=== PATIENT | male | born 1950 | race Caucasian/White ===

== ENCOUNTER 2017-01-04 14:03 | Emergency (ER) | payer OTHER ==
[2017-01-04 14:08] VITALS: TEMP 97.7; BMI 25.3
[2017-01-04] MEDS ORDERED: morphine CARPU-JECT 4 MG/1 ML DISP.SYRIN IVPUSH ONE (14:36)
[2017-01-04] MEDS ORDERED: SODIUM CHLORIDE 1,000 ML IV SCH (14:45)
[2017-01-04 15:10] LABS: URINE APPEARANCE SLCLOUDY; URINE BILIRUBIN NEGATIVE (NEGATIVE); URINE COLOR YELLOW; URINE GLUCOSE (UA) NEGATIVE (NEGATIVE); URINE KETONE NEGATIVE (NEGATIVE); URINE LEUK ESTERASE NEGATIVE (NEGATIVE); URINE NITRITE NEGATIVE (NEGATIVE); URINE PROTEIN NEGATIVE (NEGATIVE); URINE UROBILINOGEN NEGATIVE E.U./dl (0.2-1.0)
[2017-01-04 15:11] LABS: BASOPHIL 0.2 % (0-2.0); EOSINOPHIL 0.4 % (0-4.5); MCH 29.1 pg (25.7-33.7); MCHC 33.3 g/dl (32.0-35.9); MEAN CELL VOLUME 87.3 fl (80-96); MEAN PLT VOLUME 9.2 fl (7.5-11.1); PLATELET COUNT 184 K/MM3 (134-434); WHITE BLOOD COUNT 14.1 K/mm3 (4.0-10.0)
[2017-01-04 15:29] LABS: URINE BLOOD 3+ (NEGATIVE)
[2017-01-04 15:31] LABS: ALBUMIN 4.3 g/dl (3.4-5.0); ANION GAP 7 (8-16); CALCIUM 8.6 mg/dL (8.5-10.1); CO2 28 mmol/L (21-32); GLUCOSE,RANDOM 123 mg/dL (74-106); SGOT/AST 22 U/L (15-37); SGPT/ALT 44 U/L (12-78); TOT PROT 7.6 g/dl (6.4-8.2)
--- NOTE | 2017-01-04 15:32 | PDOC ---
History of Present Illness - General History Source: Patient Exam Limitations: No Limitations - History of Present Illness Initial Comments: 01/04/17 15:39 The patient is a 66 year old male with a significant past medical history of kidney stones, BPH, and glaucoma, who presents to the ER with right flank pain for one day. Patient states he had lithotripsy (no stent) done for the right kidney stone three days ago. Patient was given a filter and states that he has not seen any stones in the urine. He reports noticing urine in the blood and associated right flank and right abdominal pain that he describes as unbearable and a heat sensation. Patient admits that this is his first lithotripsy. He said he went to his doctors office for similar symptoms and was given a shot with slight relief of symptoms. Denies nausea, vomiting Denies fever, chills, cough Denies weakness PCP: Dr. Donnell Myers <Yasmin Muniz - Last Filed: 01/04/17 16:55> - General History Source: Patient Exam Limitations: No Limitations <Brianne Abel - Last Filed: 01/04/17 17:06> - General Chief Complaint: Pain, Acute Stated Complaint: SENT BY PCP/flank pain Time Seen by Provider: 01/04/17 14:36 Past History <Yasmin Muniz - Last Filed: 01/04/17 16:55> - Past Medical History Disorders: Yes (Kidney stones (blasting 01/13)) Other medical history: legally blind - Psycho/Social/Smoking Cessation Hx Suicidal Ideation: No Smoking History: Never smoked Information on smoking cessation initiated: No Hx Alcohol Use: No Drug/Substance Use Hx: No Substance Use Type: None <Brianne Abel - Last Filed: 01/04/17 17:06> - Past Medical History Allergies/Adverse Reactions: Allergies Allergy/AdvReac Type Severity Reaction Status Date / Time No Known Allergies Allergy Verified 01/04/17 14:08 Home Medications: Ambulatory Orders Amlodipine Besylate 5 mg PO DAILY 01/04/17 Review of Systems - Review of Systems Able to Perform ROS?: Yes Comments:: 01/04/17 15:39 GENERAL/CONSTITUTIONAL: No: fever, chills, weakness, loss of appetite. HEAD, EYES, EARS, NOSE AND THROAT: No: change in vision, ear pain, discharge, sore throat, throat swelling. CARDIOVASCULAR: No: chest pain, lightheadedness, palpitations, syncope RESPIRATORY: No: cough, shortness of breath, wheezing, hemoptysis, stridor. GASTROINTESTINAL: (+) right abdominal pain. No: nausea, vomiting, abdominal cramping, diarrhea, rectal bleeding, constipation. GENITOURINARY: (+) hematuria, flank pain. No: dysuria, frequency, urgency. MUSCULOSKELETAL: No: back pain, neck pain, joint pain, muscle swelling or pain SKIN AND BREASTS: No: lesions, pallor, rash or easy bruising. NEUROLOGIC: No: headache, vertigo, paresthesias, weakness ENDOCRINE: No: unexplained weight gain or loss HEMATOLOGIC/LYMPHATIC: No: anemia, easy bleeding, swelling nodes <Uts,Yasmin - Last Filed: 01/04/17 16:55> *Physical Exam - Vital Signs Last Vital Signs Temp Pulse Resp BP Pulse Ox 97.7 F 55 L 18 151/75 99 01/04/17 14:06 01/04/17 14:06 01/04/17 14:06 01/04/17 14:06 01/04/17 14:06 - Physical Exam Comments: 01/04/17 15:40 GENERAL: The patient is in no acute distress. HEAD: Normal with no signs of trauma. EYES: PERRLA, EOMI, sclera anicteric, conjunctiva clear. ENT: Ears normal, nares patent, oropharynx clear without exudates. Moist mucous membranes. NECK: Normal range of motion, supple without lymphadenopathy, JVD, or masses. LUNGS: Breath sounds equal, clear to auscultation bilaterally. No wheezes, and no crackles. HEART:Regular rate and rhythm, normal S1 and S2 without murmur, rub or gallop. ABDOMEN: Soft, nontender, normoactive bowel sounds. No guarding, no rebound. EXTREMITIES: Normal range of motion, no edema. No clubbing or cyanosis. No erythema, or tenderness. NEUROLOGICAL: Cranial nerves II through XII grossly intact. Normal speech. No focal neurological deficits. MUSCULOSKELETAL: Right CVA tenderness. Back non-tender to palpation. SKIN: Warm, Dry, normal turgor, no rashes or lesions noted. <Uts,Yasmin - Last Filed: 01/04/17 16:55> - Vital Signs Last Vital Signs Temp Pulse Resp BP Pulse Ox 97.7 F 55 L 18 151/75 99 01/04/17 14:06 01/04/17 14:06 01/04/17 14:06 01/04/17 14:06 01/04/17 14:06 <Brianne Abel - Last Filed: 01/04/17 17:06> ED Treatment Course - LABORATORY CBC & Chemistry Diagram: 01/04/17 15:00 01/04/17 15:00 - ADDITIONAL ORDERS Additional order review: Laboratory Results 01/04/17 01/04/17 15:00 15:00 Sodium 139 Potassium 4.0 Chloride 104 Carbon Dioxide 28 Anion Gap 7 L BUN 14 Creatinine 1.2 Creat Clearance w eGFR > 60 Random Glucose 123 H Calcium 8.6 Total Bilirubin 0.5 AST 22 ALT 44 Alkaline Phosphatase 57 Total Protein 7.6 Albumin 4.3 Urine Color Yellow Urine Appearance Slcloudy Urine pH 5.0 Urine Protein Negative Urine Glucose (UA) Negative Urine Ketones Negative Urine Blood 3+ H Urine Nitrite Negative Urine Bilirubin Negative Urine Urobilinogen Negative Ur Leukocyte Esterase Negative 01/04/17 15:00 RBC 5.10 MCV 87.3 MCHC 33.3 RDW 13.0 MPV 9.2 Neutrophils % 83.0 H Lymphocytes % 7.4 L Monocytes % 9.0 Eosinophils % 0.4 Basophils % 0.2 - RADIOLOGY Radiograph Interpretation: 01/04/17 16:[address] Trevor Chow <Yasmin Muniz - Last Filed: 01/04/17 16:55> - LABORATORY CBC & Chemistry Diagram: 01/04/17 15:00 01/04/17 15:00 - ADDITIONAL ORDERS Additional order review: Laboratory Results 01/04/17 15:00 Urine Color Yellow Urine Appearance Slcloudy Urine pH 5.0 Urine Protein Negative Urine Glucose (UA) Negative Urine Ketones Negative Urine Blood 3+ H Urine Nitrite Negative Urine Bilirubin Negative Urine Urobilinogen Negative Ur Leukocyte Esterase Negative 01/04/17 15:00 RBC 5.10 MCV 87.3 MCHC 33.3 RDW 13.0 MPV 9.2 Neutrophils % 83.0 H Lymphocytes % 7.4 L Monocytes % 9.0 Eosinophils % 0.4 Basophils % 0.2 - RADIOLOGY Radiology Studies Ordered: Category Date Time Status SPIRAL- RENAL-STONE CT [CT] Stat CT Scan 01/04/17 14:36 Ordered <Brianne Abel - Last Filed: 01/04/17 17:06> Medical Decision Making - Medical Decision Making 01/04/17 15:31 A portion of this note was documented by scribe services under my direction. I have reviewed the details of the note, within reason, and agree with the documentation with the following case summary and management plan written by me. Nursing documentation reviewed and incorporated into medical decision making 01/04/17 15:43 This is a 66 yo M with a history of HTN, legal blindness right flank pain Two days s/p lithotrypsy (not stented) Presenting to the ER from Urologist's office due to severe pain Pt given pain medications Preesnts to the ER comfortable Laboratory Tests 01/04/17 01/04/17 01/04/17 15:00 15:00 15:00 WBC 14.1 H Hgb 14.8 Hct 44.5 Plt Count 184 Neutrophils % 83.0 H Lymphocytes % 7.4 L BUN 14 Creatinine 1.2 Random Glucose 123 H Urine Blood 3+ H Urine Nitrite Negative Ur Leukocyte Esterase Negative 01/04/17 17:00 CT demonstrates mild hydronephrosis, hydroureter, perinephric stranding No stones in the ureter at this time No bladder stones seen Pt feels well, did not require pain medications in the ER Will: discharge to home Case reviewed with Dr. Trevor Chow Pt can be discharged to home He will need to followed up on Sunday Clinical impression: recently passed kidney stone, <Brianne Abel - Last Filed: 01/04/17 17:06> *DC/Admit/Observation/Transfer - Attestations Scribe Attestion: 01/04/17 15:41 Documentation prepared by Yasmin Muniz, acting as medical billing service for Brianne Abel MD. <Yasmin Muniz - Last Filed: 01/04/17 16:55> <Brianne Abel - Last Filed: 01/04/17 17:06> Diagnosis at time of Disposition: Calculus of right kidney - Referrals Referrals: Donnell Myers MD [Primary Care Provider] -
[2017-01-04 15:35] LABS: ALK PHOS 57 U/L (45-117); BILIRUBIN,TOTAL 0.5 mg/dL (0.2-1.0); COCKROFT - GAULT 61.81; CREATININE 1.2 mg/dL (0.7-1.3)
[2017-01-04 15:55] LABS: URINE HYALINE CAST 1 /lpf; URINE MUCUS RARE; URINE RBC 120 /hpf (0-3); URINE WBC 3 /hpf (3-5)
[2017-01-04 17:40] VITALS: BP 161/84; PULSE 63
== END 2017-01-04 17:41 | disposition home or self-care (01) ==
LOC: JER 14:03
DX: H54.0 Blindness, both eyes (principal); N40.0 Benign prostatic hyperplasia without lower urinary tract symptoms; H40.9 Unspecified glaucoma
CPT/HCPCS: 36415; 74176; 80053; 81003; 81015; 85025; 87086; 99282-25

== ENCOUNTER 2018-03-18 12:12 | Emergency (ER) | payer OTHER ==
[2018-03-18 12:23] VITALS: TEMP 98.4; BMI 24.2
--- NOTE | 2018-03-18 12:29 | PDOC ---
History of Present Illness - General Chief Complaint: Blood Pressure Problem Stated Complaint: NAUSEA Time Seen by Provider: 03/18/18 12:28 - History of Present Illness Initial Comments: The patient is a 67M with a PMH of HTN, glaucoma, and BPH who presents with 5 days of worsening lightheadedness and weakness. The patient reports that he feels dizzy when standing but denies LOC. He states that he has never felt this way before. He denies recent changes in medications. Takes Amlodipine 5mg daily for HTN but has not taken it today because he was concerned it could exacerbate his symptoms. He denies fevers/chills, chest pain, SOB, abdominal pain, or changes in sensation. His PCP is Dr. Donnell Myers. He does not have a Oil Changer 03/18/18 12:55 Past History - Past Medical History Allergies/Adverse Reactions: Allergies Allergy/AdvReac Type Severity Reaction Status Date / Time No Known Allergies Allergy Verified 01/04/17 14:08 Home Medications: Ambulatory Orders Amlodipine Besylate 5 mg PO DAILY 01/04/17 COPD: No Disorders: Yes (Kidney stones (blasting 01/13)) HTN: Yes Other medical history: glaucoma - Suicide/Smoking/Psychosocial Hx Smoking History: Never smoked Hx Alcohol Use: No Drug/Substance Use Hx: No Substance Use Type: None Review of Systems - Review of Systems Able to Perform ROS?: Yes Comments:: GENERAL/CONSTITUTIONAL: No fever or chills; +malaise/weakness HEAD, EYES, EARS, NOSE AND THROAT: No change in vision. No ear pain or discharge. No sore throat CARDIOVASCULAR: No chest pain or shortness of breath RESPIRATORY: No cough, wheezing, or hemoptysis GASTROINTESTINAL: No nausea, vomiting, diarrhea or constipation GENITOURINARY: No dysuria, frequency, or change in urination MUSCULOSKELETAL: No joint or muscle swelling or pain. No neck or back pain SKIN: No rash NEUROLOGIC: +Dizziness w/ standing; No headache, loss of consciousness, or change in strength/sensation ENDOCRINE: No increased thirst. No abnormal weight change HEMATOLOGIC/LYMPHATIC: No anemia, easy bleeding, or history of blood clots ALLERGIC/IMMUNOLOGIC: No hives or skin allergy 03/18/18 13:00 *Physical Exam - Vital Signs Last Vital Signs Temp Pulse Resp BP Pulse Ox 98.4 F 51 L 18 187/79 99 03/18/18 12:19 03/18/18 12:19 03/18/18 12:19 03/18/18 12:19 03/18/18 12:19 - Physical Exam Comments: GENERAL: Awake, alert, and fully oriented, in no acute distress HEAD: No signs of trauma, normocephalic, atraumatic EYES: b/l glaucom L worse than R; EOMI ENT: Hearing grossly normal, nares patent, oropharynx clear without exudates. Moist mucosa NECK: Normal ROM, supple, no lymphadenopathy LUNGS: No distress, speaks full sentences, clear to auscultation bilaterally HEART:Regular rate and rhythm, normal S1 and S2, no murmurs appreciated, peripheral pulses normal and equal bilaterally ABDOMEN: Soft, nontender, normoactive bowel sounds. No guarding, no rebound EXTREMITIES : Normal inspection, Normal range of motion, no edema. No clubbing or cyanosis NEUROLOGICAL: Cranial nerves II through XII grossly intact. Normal speech, no focal sensorimotor deficits SKIN: Warm, Dry, normal turgor, no rashes or lesions noted 03/18/18 13:01 ED Treatment Course - LABORATORY CBC & Chemistry Diagram: 03/18/18 13:09 03/18/18 13:09 Medical Decision Making - Medical Decision Making The patient is a 67M with a history of HTN, BPH, and glaucoma who presents with 5 days of worsening dizziness w/ standing and malaise and hypertensive urgency ED Course CMP, CBC, UA CXR, ECG Hydralazine 10mg IV once 03/18/18 13:03 Patient wishes to leave against medical advice to go to [facility] for evaluation. Patient states that a family member is coming to pick him up. Note: The patient insists on leaving the emergency dept and is signing out against medical advice. The patient understands the risks and complications that may result from the refusal of medical care and admission which includes and permanent disability. The patient has the mental capacity of understanding the risks of refusing care and is capable of making an informed decision. The patient was instructed to return to the emergency department should condition change, change mind regarding medical care, or if condition worsen. The patient signed the Against Medical Advice form. *DC/Admit/Observation/Transfer Diagnosis at time of Disposition: Dizziness - Discharge Dispostion Disposition: AGAINST MEDICAL ADVICE Condition at time of disposition: Guarded - Referrals Referrals: Donnell Myers MD [Primary Care Provider] - - Patient Instructions - Post Discharge Activity
--- NOTE | 2018-03-18 12:33 | PDOC ---
Attending Attestation - HPI HPI: 03/18/18 12:52 The patient is a 67 year old male, with a significant past medical history of htn, bph, glaucoma, who presents to the emergency department from his PCP office with a 5 day complaint of weakness and dizziness with changing positions. He reports a couple episodes of nonbloody emesis about a week ago, but none since. The patient denies chest pain, shortness of breath, headache. The patient denies fever, chills, nausea, vomit, diarrhea and constipation. The patient denies dysuria, frequency, urgency and hematuria. Allergies: NKDA - Physicial Exam PE: 03/18/18 12:53 GENERAL: Awake, alert, and fully oriented, in no acute distress HEAD: No signs of trauma EYES: (+) left eye cataract. PERRLA, EOMI, sclera anicteric, conjunctiva clear ENT: Auricles normal inspection, hearing grossly normal, nares patent, oropharynx clear without exudates. Moist mucosa NECK: Normal ROM, supple, no lymphadenopathy, JVD, or masses LUNGS: Breath sounds equal, clear to auscultation bilaterally. No wheezes, and no crackles HEART: (+) slightly bradycardic 40s-50s. hypertensive 150/121. Regular rhythm, normal S1 and S2, no murmurs, rubs or gallops. ABDOMEN: Soft, nontender, normoactive bowel sounds. No guarding, no rebound. No masses EXTREMITIES: Normal range of motion, no edema. No clubbing or cyanosis. No cords, erythema, or tenderness NEUROLOGICAL: Cranial nerves II through XII grossly intact. Normal speech, SKIN: Warm, Dry, normal turgor, no rashes or lesions noted. - Medical Decision Making 03/18/18 12:52 Documentation prepared by Arianne Wolff, acting as clinical medical assistant for Maria G Francosi MD <Arianne Wolff - Last Filed: 03/18/18 13:01> - Medical Decision Making 03/18/18 14:28 Pt presents to the ED with lightheadness and bradycardia. While his EKG shows sinus bradycardia, he denies chest pain and his labs are within normal limits, symptoms were consistent with symptomatic bradycardia, and the plan was to admit him for continued monitoring. Patient refused admission because he "should have been seen by cardiology immediately" and insisted on leaving despite being informed of the risks of leaving AMA, including syncope, injury from falls and . <Maria G Francois - Last Filed: 03/18/18 14:36>
[2018-03-18] MEDS ORDERED: hydrALAZINE HCL 20 MG/ML VIAL IVPUSH ONE (12:55)
[2018-03-18] MEDS ORDERED: hydrALAZINE HCL 20 MG/ML VIAL ONE (13:14)
[2018-03-18 13:22] LABS: HEMATOCRIT 45.7 % (35.4-49); HEMOGLOBIN 15.3 GM/dL (11.7-16.9); MCH 29.1 pg (25.7-33.7); MCHC 33.5 g/dl (32.0-35.9); MEAN CELL VOLUME 86.9 fl (80-96); MEAN PLT VOLUME 8.8 fl (7.5-11.1); PLATELET COUNT 186 K/MM3 (134-434); RBC 5.26 M/mm3 (4.00-5.60); RDW 13.5 % (11.9-15.9); WHITE BLOOD COUNT 6.4 K/mm3 (4.0-10.0)
[2018-03-18 13:31] LABS: URINE APPEARANCE CLEAR; URINE BILIRUBIN NEGATIVE (<2.0 mg/dL); URINE COLOR STRAW; URINE GLUCOSE (UA) NEGATIVE (NEGATIVE); URINE KETONE NEGATIVE (NEGATIVE); URINE LEUK ESTERASE NEGATIVE (NEGATIVE); URINE NITRITE NEGATIVE (NEGATIVE); URINE PROTEIN NEGATIVE (NEGATIVE); URINE UROBILINOGEN NEGATIVE mg/dL (0.2-1.0)
[2018-03-18 13:45] LABS: ALBUMIN 4.3 g/dl (3.4-5.0); ANION GAP 6 (8-16); BILIRUBIN,TOTAL 0.5 mg/dL (0.2-1.0); BLOOD UREA NITROGEN 11 mg/dL (7-18); CHLORIDE 108 mmol/L (98-107); CO2 28 mmol/L (21-32); CREATININE 0.9 mg/dL (0.7-1.3); GLUCOSE,RANDOM 88 mg/dL (74-106); POTASSIUM 3.9 mmol/L (3.5-5.1); SGOT/AST 15 U/L (15-37); SGPT/ALT 22 U/L (12-78); SODIUM 142 mmol/L (136-145); TOT PROT 7.9 g/dl (6.4-8.2)
[2018-03-18 13:47] VITALS: BP 181/82; PULSE 52
[2018-03-18 13:47] LABS: ALK PHOS 62 U/L (45-117)
--- NOTE | 2018-03-19 13:14 | EKG ---
Test Reason : Blood Pressure : / mmHG Vent. Rate : 061 BPM Atrial Rate : 061 BPM P-R Int : 188 ms QRS Dur : 098 ms QT Int : 432 ms P-R-T Axes : 049 002 000 degrees QTc Int : 434 ms NORMAL SINUS RHYTHM NONSPECIFIC ST ABNORMALITY ABNORMAL ECG NO PREVIOUS ECGS AVAILABLE Confirmed by Sulaiman Singh MD ([id number]) on 03/19/2018 1:14:12 PM Referred By: Confirmed By:Sulaiman Singh MD
== END 2018-03-18 14:15 | disposition left against medical advice (07) ==
LOC: JER 12:12
PROC: 3E033GC Introduction of Other Therapeutic Substance into Peripheral Vein, Percutaneous Approach (ICD-10-PCS; principal; 2018-03-18)
DX: R42 Dizziness and giddiness (principal); I10 Essential (primary) hypertension; N40.0 Benign prostatic hyperplasia without lower urinary tract symptoms; H40.9 Unspecified glaucoma; R00.1 Bradycardia, unspecified
CPT/HCPCS: 36415; 80053; 81003; 82550; 84484; 85027; 93005; 93010; 96374; 99285-25

== ENCOUNTER 2023-11-26 03:55 | Day surgery (SDC) | payer OTHER ==
[2023-11-26 10:08] VITALS: RESP 18; BMI 16.1
[2023-11-26] MEDS ORDERED: FENTANYL CITRATE/PF 50 MCG/ML VIAL ONE ×3 (11:23→12:02)
[2023-11-26] MEDS ORDERED: ONDANSETRON 4 MG/2 ML VIAL ONE (11:23)
[2023-11-26] MEDS ORDERED: PROPOFOL 20 ML ONE (11:23)
[2023-11-26] MEDS ORDERED: MIDAZOLAM HCL 2 MG/2 ML SINGLE DOSE VIAL ONE (11:24)
[2023-11-26 13:13] VITALS: BP 114/56; PULSE 65; TEMP 97.1
== END 2023-11-26 13:15 | disposition home or self-care (01) ==
LOC: JASU-SURG 03:55
PROVIDERS: ATTEND Urology
PROC: 0TF3XZZ Fragmentation in Right Kidney Pelvis, External Approach (ICD-10-PCS; principal; 2023-11-26 11:30)
DX: N20.0 Calculus of kidney (principal)